=== PATIENT | male | born 2000 | race African-American/Black ===

== ENCOUNTER 2021-07-26 17:06 | Emergency (ER) | payer OTHER ==
[~2021-07-26] VITALS: Ht 188 cm; Wt 115.0 kg
[2021-07-26 17:39] VITALS: BP 110/74; TEMP 98.6
[2021-07-26] MEDS ORDERED: PREDNISONE20 MG PO (18:50)
[2021-07-26 19:19] VITALS: PULSE 101
== END 2021-07-26 19:19 | disposition home or self-care (01) ==
LOC: COL.ER 17:06
DX: J45.901 Unspecified asthma with (acute) exacerbation (principal)

== ENCOUNTER 2021-09-14 19:28 | Emergency (ER) | payer OTHER ==
[~2021-09-14] VITALS: Ht 188 cm; Wt 90.9 kg
[~2021-09-14 19:28] MED LIST: PREDNISONE20 MG PO
[2021-09-14 20:00] VITALS: TEMP 97.9
[2021-09-14] MEDS ORDERED: MOBIC 7.5MG7.5 MG PO (20:44)
[2021-09-14] MEDS ORDERED: FLEXERIL 1010 MG/TAB PO (20:44)
[2021-09-14 21:00] VITALS: BP 124/83; PULSE 81
== END 2021-09-14 21:01 | disposition home or self-care (01) ==
LOC: COL.ER 19:28
DX: M25.512 Pain in left shoulder (principal); M25.511 Pain in right shoulder; Z28.311 Partially vaccinated for COVID-19